=== PATIENT | female | born 1950 | race Hispanic/Latino ===

== ENCOUNTER 2018-03-21 15:22 | Outpatient (CLI) | payer MEDICARE | END 2018-03-21 15:23 | disposition home or self-care (01) | LOC: RAD 15:22 ==

== ENCOUNTER → 2018-05-02 | Day surgery (SDC) | payer MEDICARE ==
[2018-03-24 16:17] VITALS: BMI 30.7
[~2018-05-02] MED LIST: Propofol 10 mg/ml Inj (20 ML) ONE; Sodium Chloride 0.9% 1,000 ML IV SCH
[2018-05-02 11:56] VITALS: TEMP 98
[2018-05-02 12:01] VITALS: O2SAT 99
[2018-05-02 13:41] VITALS: BP 110/72; PULSE 65; RESP 16
== END | disposition home or self-care (01) ==
LOC: ENDO 08:03
PROVIDERS: ATTEND Internal Medicine Gastroenterology
DX: Z12.11 Encounter for screening for malignant neoplasm of colon (principal); K57.30 Diverticulosis of large intestine without perforation or abscess without bleeding; K64.0 First degree hemorrhoids; R19.4 Change in bowel habit; Z86.010 Personal history of colon polyps

== ENCOUNTER 2018-05-26 11:40 | Outpatient (CLI) | payer MEDICARE | END 2018-05-26 11:41 | disposition home or self-care (01) | LOC: RAD 11:40 ==